=== PATIENT | female | born 1985 | race Caucasian/White ===

== ENCOUNTER → 2017-05-30 13:04 | Outpatient (CLI) | payer MEDICAID, SELFPAY ==
--- NOTE | 2017-05-30 13:10 | HPBI_ITS ---
MAMMOGRAPHY - BILATERAL SCREENING REASON FOR EXAM: Female, 31 years old. Routine annual screening examination. PERTINENT HISTORY: Bilateral breast pain. TECHNIQUE: Digital bilateral breast martita (3D mammographic acquisition) in the CC and MLO projections. 2-D mediolateral oblique (MLO) and craniocaudad (CC) views of both breasts were obtained. CAD: Full Field Digital Mammography with Computer Added Detection was performed. COMPARISON: None. Baseline examination. FINDINGS: Breast Composition: The breasts are heterogeneously dense, which may obscure small masses. There are no dominant masses or suspicious calcifications. Small left axillary lymph nodes. No other significant abnormalities are identified. HPBI/DIAG MAMM W/CAD, BILAT IMPRESSION: Negative screening mammogram. With the patient's history of right lateral breast pain, correlation with ultrasound is recommended. ASSESSMENT CATEGORY: BIRADS Category 0: Incomplete. Need additional imaging evaluation. A letter regarding these results will be sent to the patient by the facility within 30 days. Approximately 10% of breast cancers are not detected by mammography. A normal mammogram should not delay biopsy of a clinically suspicious abnormality. [id number] Electronically Signed: Anjel Baker MD at 15:08 EST Tel [phone], Service support ,
--- NOTE | 2017-05-30 14:43 | US_ITS ---
STUDY: ULTRASOUND BREAST - RIGHT REASON FOR EXAM: Female, 31 years old. Pain in the right breast. TECHNIQUE: Axial and longitudinal images of the RIGHT breast were performed with a high resolution ultrasound transducer. COMPARISON: Comparison is made with prior mammogram done earlier today. FINDINGS: RIGHT Breast: The area of pain was examined by ultrasound. There is homogeneous fibroglandular tissue. No significant abnormality is seen. US/Breast Limited Unilateral IMPRESSION: Unremarkable sonographic examination. ASSESSMENT CATEGORY: BIRADS Category 1: Negative. A letter regarding these results will be sent to the patient by the facility within 30 days. Electronically Signed: Anjel Baker MD at 8:04 EST Tel [phone], Service support ,
== END ==
PROVIDERS: Family Provider Family Medicine; PCP Family Medicine
DX: N64.4 Mastodynia (principal)
CPT/HCPCS: 76642; 77062; 77066; G0279

== ENCOUNTER 2017-07-22 07:56 | Day surgery (SDC) | payer MEDICAID, SELFPAY ==
[2017-07-22] VITALS (7 sets, daily range): BP systolic 126–137; BP diastolic 85–90; PULSE 68–80; RESP 16; TEMP 36–36.2; O2SAT 93–100; BMI 42.1
--- NOTE | 2017-07-22 | SAL_PTH ---
PATIENT: YVETTE MARQUES LOC: [facility] [place] U#:[id number] AGE/SX: 31/F ROOM: RE07/22/[address]: Dr. Ronaldo Pace MD : 1985 BED: DIS: 07/22/2017 SPEC #: [id number] RECD: 07/22/17 09:34 STATUS: CAMERON JUSTIN #: [id number] BETHANY: 07/22/17 00:[address]: Ronaldo Pace DEPT: SURGICAL PATHOLOGY RECD BY: Patricia Ramirez ENTERED: 07/22/17 10:04 SP TYPE: ALCIDES BISHOP DR: Dr. Valeriano South, DO Tissues: Salivary gland, NOS Procedures: Frozen Section (charge) Surgery Specimen Level IV Frozen (no charge) HEADER OPERATION: Minor salivary gland biopsy PRE-OP DIAGNOSIS: Sicca syndrome, unspecified xerostomia TISSUE SUBMITTED: Simple salivary gland for FS at 0930 FROZEN SECTION DIAGNOSIS Minor salivary gland, biopsy: Salivary gland tissue with mild chronic inflammation. SJ:rg 07/22/17 MICROSCOPIC DIAGNOSIS Minor salivary gland, biopsy: Salivary gland tissue with mild chronic inflammation. Special stain for IgG4 (IHC) is negative. See comment. SJ:rg 07/29/17 COMMENT The IgG4 stain in conjunction with IgG (IHC) was performed at [facility] (technical component) and interpreted here. IgG is positive and IgG4 is negative in the specimen. A negative control and a positive for each antibody are also reviewed. Case has been reviewed in consultation with Dr. Farrar who concurs with the above diagnosis. IDC:AM MICROSCOPIC DESCRIPTION Slides are reviewed. GROSS DESCRIPTION Received fresh for frozen section diagnosis labeled with the patient's name is a specimen designated minor salivary gland. The specimen consists of a piece of anderson-pink soft tissue measuring 0.3 x 0.1 x 0.1 cm. The entire specimen is submitted for frozen section diagnosis in one cassette. / SJ:xander 07/22/17 TC:3 CPT: 43513, 40257, 84689, 68920
--- NOTE | 2017-07-22 09:15 | PCM.DC ---
Your food should be the consistency of: Mechanical soft (ground) Discharge Activity: Return to Normal Activity Allergies/Adverse Reactions: Allergies ketorolac tromethamine [From Toradol] Allergy (Verified 07/15/17 14:02) Unknown Medications to take at Discharge Estradiol 1 mg PO DAILY 06/19/16 Metoprolol Tartrate [Lopressor (Beta Aixa)] 50 mg PO DAILY 06/19/16 Ibuprofen [Motrin] 400 mg PO Q6H PRN PRN 07/15/17 Primary Care Physician: Valeriano South DO [Primary Care Provider] -
--- NOTE | 2017-07-22 09:47 | PCM.OPRPT ---
Report of Operation Date of Procedure: 07/22/17 Pre-Operative Diagnosis: Sjogrens disease Post-Operative Diagnosis: same Surgery/Procedure Performed:: Minor salivary gland biopsy Description of Surgical Findings:: as above Type of Anesthesia:: General Anesthesiologist: Ponce Barry Specimen's removed: minor salivary gland Estimated Blood Loss (mL): minimal Description of Procedure: The patient was taken to the OR on 07/22/17. She was placed in the supine position on the OR table and then given sufficient general anesthesia. The patient was draped. I then injected 1% lidocaine with epinephrine ([id number]) in the mucosa overlying a minor salivary gland in the left lip/gingivolabial sulcus. I then made an 8 mm incision. Sharp dissection was used to isolate a minor salivary gland. The gland was then removed sharply and sent for frozen section to verify that it was indeed salivary tissue. I then closed the incision with 4-0 chromic. Once pathology confirmed the identity of tissue, the procedure was terminated. The patient was awoken and brought to the recovery room in stable condition. Blood loss minimal, replacement none. Sponge needle and instrument count were correct at the end of the procedure.
--- NOTE | 2017-07-22 09:51 | OP.PCM_ITS ---
Report of Operation Date of Procedure: 07/22/17 Pre-Operative Diagnosis: Sjogrens disease Post-Operative Diagnosis: same Surgery/Procedure Performed:: Minor salivary gland biopsy Description of Surgical Findings:: as above Type of Anesthesia:: General Anesthesiologist: Ponce Barry Specimen's removed: minor salivary gland Estimated Blood Loss (mL): minimal Description of Procedure: The patient was taken to the OR on 07/22/17. She was placed in the supine position on the OR table and then given sufficient general anesthesia. The patient was draped. I then injected 1% lidocaine with epinephrine (1:[id number]) in the mucosa overlying a minor salivary gland in the left lip/gingivolabial sulcus. I then made an 8 mm incision. Sharp dissection was used to isolate a minor salivary gland. The gland was then removed sharply and sent for frozen section to verify that it was indeed salivary tissue. I then closed the incision with 4-0 chromic. Once pathology confirmed the identity of tissue, the procedure was terminated. The patient was awoken and brought to the recovery room in stable condition. Blood loss minimal, replacement none. Sponge needle and instrument count were correct at the end of the procedure.
== END 2017-07-22 11:03 | disposition home or self-care (01) ==
LOC: SDC 07:58 → AC 07:59
PROVIDERS: Family Provider Family Medicine; PCP Family Medicine; Visit Provider Otolaryngology
PROC: (CPT 42440; principal; 2017-07-22 09:05)
DX: M35.00 Sjogren syndrome, unspecified (principal); K11.7 Disturbances of salivary secretion; I10 Essential (primary) hypertension; F17.210 Nicotine dependence, cigarettes, uncomplicated
CPT/HCPCS: 00100; 42405; 88305; 88307; 88331; J7120; J2405

== ENCOUNTER → 2023-07-02 | Outpatient (CLI) | payer MEDICAID, SELFPAY ==
--- OUTSIDE RECORDS SUMMARY | 2023-07-02 07:53 | XMS RPT_ITS | CCD ---
Author Name Unknown Address [address] [place] [address] Organization [facility] Care Team Providers Care Unit Aide Tech Name Role Phone ROBERT MOREL Unavailable Unavailable GENESIS GUZMAN Unavailable Unavailab le PROVIDER, UNKNOWN Unavailable Unavailable Valeriano South Unavailable Unavailable KARENA ORTIZ Referring Unavailable KARENA ORTIZ Attending Unavailable ROSALIE AARON MD Admitting Unavailable ROSALIE AARON MD Primary Care Unavailable ROSALIE AARON MD Attending Unavailable ROSALIE AARON MD Consulting Unavailable PROVIDER, UNKNOWN Consulting Unavailable PROVIDER, UNKNOWN Consulting Unavailable ROSALIE AARON MD Admitting Unavailable ROSALIE AARON MD Attending Unavailable ROSALIE AARON MD Consulting Unavailable ROSALIE AARON MD Primary Care Unavailable PROVIDER, UNKNOWN Consulting Unavailable PROVIDER, UNKNOWN Consulting Unavailable ROSALIE AARON MD Admitting Unavailable ROSALIE AARON MD Attending Unavailable ROSALIE AARON MD Consulting Unavailable ROSALIE AARON MD Primary Care Unavailable PROVIDER, UNKNOWN Consulting Unavailable PROVIDER, UNKNOWN Consulting Unavailable BUD OSPINA Admitting Unavailable ROSALIE AARON MD Consulting Unavailable BUD OSPNIA Attending Unavailable BUD OSPINA Primary Care Unavailable PROVIDER, UNKNOWN Consulting Unavailable PROVIDER, UNKNOWN Consulting Unavailable ROSALIE AARON MD Admitting Unavailable ROSALIE AARON MD Attending Unavailable ROSALIE AARON MD Consulting Unavailable ROSALIE AARON MD Primary Care Unavailable PROVIDER, UNKNOWN Consulting Unavailable PROVIDER, UNKNOWN Consulting Unavailable [facility] Admitting Unavailab ROSALIE Hernandez MD Referring Unavailable ROSALIE AARON MD Consulting Unavailable [facility] Attending Unavailab [facility] Primary Care Unavailab le PROVIDER, UNKNOWN Consulting Unavailable PROVIDER, UNKNOWN Consulting Unavailable Allergies Allergy Classification Reported Allergen(s) Allergy Type Date of Onset Reaction(s) Facility (1 source) Ketorolac Drug Allergy [facility] Repository Problems Active Problems Problem Classification Problem Date Documented Da te Episodic/Chronic Cardiac dysrhythmias (1 source) Cardiac arrhythmia, unspecified; Translations: [Cardiac arrhythmia, unspecified] Onset: 12-04-2022 Chronic Disorders of lipid metabolism (1 source) Pure hypercholesterole korin, unspecified; Translations: [Pure hypercholesterole korin, unspecified] Onset: 12-04-2022 Chronic Essential hypertension (1 source) Essential (primary) hypertension; Translations: [Essential (primary) hypertension] Onset: 12-04-2022 Chronic Past or Other Problems Problem Classification Problem Date Documented Da te Episodic/Chronic Administrative/social admission (3 sources) Encounter for blood-alcohol and blood-drug test; Translations: [Encounter for blood-alcohol and blood-drug test] Onset: 05-24-2022 Episodic Other non-traumatic joint disorders (2 sources) Pain in right hip; Translations: [Pain in right hip] Onset: 03-15-2017 Episodic Results Test Name Value Interpretation Reference Range Facil ity Encounters Encounter Date Encounter Type Care Provider Facility Start: 12-31-2022 End: 12-31-2022 ambulatory ROSALIE HUERTA [facility] Start: 12-12-2022 End: 12-12-2022 ambulatory ROSALIE HUERTA [facility] Start: 12-04-2022 End: 12-04-2022 ambulatory ROSALIE HUERTA [facility] Start: 12-04-2022 Encounter for genera l adult medical examination without abnormal findings ROSALIE HUERTA [facility] Start: 05-24-2022 End: 05-24-2022 ambulatory [facility] Start: 05-02-2022 End: 05-02-2022 ambulatory KARENA ORTIZ Facility: Start: 03-26-2022 End: 03-26-2022 ambulatory BUD OSPINA [facility] Start: 03-21-2022 End: 03-21-2022 ambulatory ROSALIE HUERTA [facility] Start: 06-18-2017 Ambulatory ROBERT MOREL Facility:. Start: 03-15-2017 Ambulatory GENESIS Kauffman [facility] Payers Date Payer Category Payer Unknown [id number] 1985 Unknown [id number] [id number] [id number] 1985 Unknown [id number] 2.16.8 [id number] 1985 Unknown [id number] 2.16.8 [id number] 1985 Unknown [id number] 2.16.84 [id number] 1985 Unknown [id number] 2.16.84 [id number] 1985 Unknown [id number] 2.16.84 [id number] Private Health Insurance Private Health Insurance [id number] Unknown [id number] 2.16.8 [id number] Worker's Compensation [id number] Summary Purpose Family History No Family History Records FoundNo Family History Records FoundNo Family History Records FoundNo Family History Records FoundNo Family History Records FoundNo Family History Records Found Advance Directives No Advanced Directives Records FoundNo Advanced Directives Records FoundNo Advanced Directives Records FoundNo Advanced Directives Records FoundNo Advanced Directives Records FoundNo Advanced Directives Records Found Additional Source Comments INFORMATION SOURCE (unrecogn ized section and content) DATE CREATED AUTHOR AUTHOR'S ORGANIZ ATION 10/29/2017 [facility] DATE CREATED AUTHOR AUTHOR'S ORGANIZ ATION 07/31/2020 [facility] ([place]) DATE CREATED AUTHOR AUTHOR'S ORGANIZ ATION 03/18/2021 [facility] DATE CREATED AUTHOR AUTHOR'S ORGANIZ ATION 05/18/2022 [facility] DATE CREATED AUTHOR AUTHOR'S ORGANIZ ATION 12/31/2022 [facility] FOR RECORDS PERTAINING TO PATIENTS WHO ARE OR HAVE BEEN ENROLLED IN A CHEMICAL DEPENDENCY/SUBSTANCEABUSE PROGRAM, SOME INFORMATION MAY BE OMITTED. This clinical summary was aggregated from multiple sources. Caution should be exercised in using it in the provision of clinical care. This summary normalizes information from multiple sources, and as a consequence, information in this document may materially change the coding, format and clinical context of patient data. In addition, data may be omitted in some cases. CLINICAL DECISIONS SHOULD BE BASED ON THE PRIMARY CLINICAL RECORDS. [facility] [employer] [facility]. provides no warranty or guarantee of the accuracy or completeness of information in this document.
[2023-07-02 10:40] LABS: Anion Gap 6 (5-15); BUN 16 mg/dL (7-18); BUN/Creat Ratio 17.6 RATIO (10-20); Calcium,Total 9.5 mg/dL (8.5-10.1); Chloride 106 mmol/L (98-107); Creatinine, Serum 0.91 mg/dL (0.55-1.02); EST Glomerular Filtration Rate 73 mL/min (>60); Est Glom Filt Rate - Afr Amer 88 mL/min (>60); Glucose 97 mg/dL (74-106); Potassium 3.8 mmol/L (3.5-5.1); Sodium Level 137 mmol/L (136-145)
== END | disposition home or self-care (01) ==
LOC: LAB 07:50
PROVIDERS: PCP Student in an Organized Health Care Education/Training Program; Referring Provider Nurse Practitioner Gerontology; Visit Provider Nurse Practitioner Gerontology
DX: I10 Essential (primary) hypertension (principal)
CPT/HCPCS: 36415; 80048